=== PATIENT | female | born 1975 | race Caucasian/White ===

== ENCOUNTER 2016-07-10 23:41 | Outpatient (CLI) | payer MEDICAID ==
[~2016-07-10] VITALS: Ht 157.5 cm; Wt 84.4 kg
[~2016-07-10 23:41] MED LIST: CALC600T5 PO; FERR134T PO; PREN1TAB79 PO
[2016-07-10 23:59] VITALS: Ht 157.5 cm; Wt 84.4 kg
[2016-07-11] VITALS: BP 118/78; PULSE 79; RESP 19
--- NOTE | 2016-07-11 01:07 | PN ---
Date/Time of Note Date/Time of Note DATE: 07/11/16 TIME: 01:03 OB Subjective Subjective Subjective 41 yo P3005 @ 30 wks, came w c/o ctx, no VB, no LOF, good FM OB Objective Objective Objective Abdomen- gravid, n/t SVE- l/c/p per rn FHT- Cat I [place]- rare ctx Abdomen: WNL Effacement: 0% Station: -3 Contractions on Admission: >10 Minutes Apart Intensity: Mild OB Assessment/Plan Other Assessment: 41 yo P3005 @ 30 wks, r/o PTL - reassuring status - sono; ffn collected; will discard if cervical length >3cm BOZENA KOVACS MD Jul 11, 2016 01:07
--- NOTE | 2016-07-11 01:46 | RADRPT ---
PROCEDURE: Limited OB ultrasound CLINICAL INDICATION: Pain TECHNIQUE: Limited sonographic evaluation of the gravid uterus was performed to assess cervical le ngth. COMPARISON: None FINDINGS: Cervix is 4.64 cm in length and appears closed. Single live intrauterine with a heart rate 157 beats per minute is present. Fetus is in cephalic presentation. The placenta is anterior. Th ere is no evidence for placenta previa.. IMPRESSION: Cervical length 4.64 cm. RPTAT: HMVK .Charan Bull MD, Date Time Electronically viewed and signed by .Charan Bull MD, on 07/11/2016 01:46 .K/
--- NOTE | 2016-07-11 02:16 | TRIAGE ---
OB Triage Datetime Report Generated by CPN: 07/11/2016 02:16 Datetime: 07/11/2016 02:00 Labor Evaluation Frequency: IRREGULAR Monitor Mode: External Duration (sec)2399: 40-100 Quality: Mild Pattern: Normal: <= 5 Contractions in 10 Minutes Resting Tone [place]: Relaxed Heart Rate FHR Baseline Rate: 145 Monitor Mode: External US FHR Baseline Changes: No Baseline Change Variability: Moderate 6-25 bpm Accelerations: 15X15 Decelerations: None Category: Category I Pain Assessment Pain Scale: 0 Pain Presence: None/Denies Pain Type: N/A Datetime: 07/11/2016 01:30 Pain Assessment Pain Scale: 0 Pain Presence: None/Denies Pain Type: N/A Datetime: 07/11/2016 01:00 Labor Evaluation Frequency: 2/HR Monitor Mode: External Duration (sec)2399: 100 Quality: Mild Pattern: Normal: <= 5 Contractions in 10 Minutes Resting Tone [place]: Relaxed Heart Rate FHR Baseline Rate: 145 Monitor Mode: External US FHR Baseline Changes: No Baseline Change Variability: Moderate 6-25 bpm Accelerations: 15X15 Decelerations: None Category: Category I Datetime: 07/11/2016 00:35 Pain Assessment Pain Scale: 0 Pain Presence: None/Denies Pain Type: N/A Datetime: 07/10/2016 23:50 Time of Arrival: 07/10/2016 23:30 EGA: 31.2 Arrived By: Wheelchair Arrived From: Home Chief Complaint: Contractions Movement: Present Contractions: Irregular Time Contractions Began: 07/10/2016 20:00 Contractions: Every 5-10 minutes Rupture of Membranes: Denies Vaginal Bleeding: None Vaginal Discharge: Denies Recent Sexual Intercouse: Denies Abdominal Trauma: Not Applicable Patient Complaints: Contractions; Cramping Time Provider Notified: 07/10/2016 23:46 Provider Notified: Dr. Olmos Initial Plan: CEFM, FFN, CL Datetime: 07/10/2016 23:47 Stage of : OB Triage Assessment Type: Triage Maternal Assessment Level of Consciousness: Fully Conscious DTR's/Clonus: DTRs 2+; No Clonus Headache: Denies Blurred Vision: No Respiratory Effort: Unlabored; Regular Rhythm; Equal Expansion Breath Sounds, Left: Clear and Equal Breath Sounds, Right: Clear and Equal Nausea/Vomiting: Denies RUQ Epigastric Pain: Denies Lower Extremities Edema: None Degree: None Upper Extremities Edema: None Degree: None Facial Edema: None Temperature Route: Oral Fall Risk Assessment History of Falling: (0) No Secondary Diagnosis: (0) No Ambulatory Aid: (0) Bedrest/Nurse Assist IV Therapy: (0) No Gait: (0) Normal/Bedrest/Immobile Mental Status: (0) Oriented to Own Ability Fall Score: 0 Fall Risk Score Definition: No Risk: No action required Pain Assessment Pain Scale: 4 Pain Presence: Intermittent Pain Type: Cramping Pain Location: Abdomen Datetime: 05/20/2016 01:47 Labor Evaluation Frequency: 0 Monitor Mode: External Datetime: 05/20/2016 01:44 Pain Presence: None/Denies Pain Assessment Comments: PT STATES SHE HAS NO PAIN AND WANTS TO GO HOME Datetime: 05/20/2016 01:00 Labor Evaluation Frequency: 0 Monitor Mode: External Datetime: 05/20/2016 00:30 Labor Evaluation Frequency: 0 Pattern: Normal: <= 5 Contractions in 10 Minutes Datetime: 05/20/2016 00:00 Labor Evaluation Frequency: 0 Monitor Mode: External Datetime: 05/19/2016 23:40 Stage of : OB Triage Datetime: 05/19/2016 23:24 Stage of : OB Triage Datetime: 05/19/2016 22:59 Stage of : OB Triage Labor Evaluation Frequency: 0 Monitor Mode: External Resting Tone [place]: Relaxed Datetime: 05/19/2016 22:44 Stage of : OB Triage Datetime: 05/19/2016 22:04 Stage of : OB Triage Datetime: 05/19/2016 22:01 Stage of : OB Triage Datetime: 05/19/2016 22:00 Stage of : OB Triage Labor Evaluation Frequency: 0 Monitor Mode: External Resting Tone [place]: Relaxed Datetime: 05/19/2016 21:56 Stage of : OB Triage Datetime: 05/19/2016 21:05 Stage of : OB Triage Monitor Mode: External Datetime: 05/19/2016 21:00 Labor Evaluation Frequency: 0 Monitor Mode: External Resting Tone [place]: Relaxed Datetime: 05/19/2016 20:48 Stage of : OB Triage Datetime: 05/19/2016 20:29 Stage of : OB Triage Datetime: 05/19/2016 20:20 Time of Arrival: 05/19/2016 20:09 EGA: 23.6 Arrived By: Wheelchair Arrived From: Home Chief Complaint: Upper abd pain since 1900 Movement: Present Contractions: Denies/Absent Rupture of Membranes: Denies Vaginal Bleeding: None Vaginal Discharge: Denies Recent Sexual Intercouse: Denies Abdominal Trauma: Not Applicable Patient Complaints: Other Time Provider Notified: 05/20/2016 21:56 Provider Notified: CLIFF Initial Plan: VS, EFM, U/S r upper quadrant Datetime: 05/19/2016 20:15 Stage of : OB Triage Monitor Mode: External Datetime: 05/19/2016 20:12 Stage of : OB Triage Heart Rate FHR Baseline Rate: 145 Monitor Mode: Doppler Comments: X 1 min with audible fhts to 165s'
== END 2016-07-11 02:13 | disposition home or self-care (01) ==
LOC: OBT 23:41 → L-D 23:43 → OBT 07-11 02:13
PROVIDERS: ATTEND Obstetrics & Gynecology
DX: O62.9 Abnormality of forces of labor, unspecified (principal); O09.523 Supervision of elderly multigravida, third trimester; Z3A.30 30 weeks gestation of pregnancy
CPT/HCPCS: 76817; Z7500; G0463

== ENCOUNTER 2017-02-03 10:15 | Emergency (ER) | payer MEDICAID ==
[~2017-02-03] VITALS: Wt 69.0 kg
[2017-02-03] MEDS ORDERED: KETOROLAC 30 MG INJ IV STA (10:43)
[2017-02-03] MEDS ORDERED: SOD CHLORIDE 0.9% 1,000 ML IV STA (10:43)
[2017-02-03] MEDS ORDERED: ONDANSETRON 4 MG INJ IV STA (10:43)
[2017-02-03 11:30] LABS: ALBUMIN/GLOBULIN RATIO 1.56; BILIRUBIN,INDIRECT 0.3 mg/dl (0-1.1); BILIRUBIN,TOTAL 0.3 mg/dl (0.2-1.3); CALCIUM 9.4 mg/dl (8.4-10.2); CREATININE 0.56 mg/dl (0.44-1.00); POTASSIUM 4.6 mmol/L (3.5-5.1); TOTAL PROTEIN 8.2 g/dl (6.1-8.1)
[2017-02-03 11:41] LABS: ADD UMIC NO; UR ASCORBIC ACID 40 mg/dL (NEGATIVE); UR BILIRUBIN (Dip) NEGATIVE (NEGATIVE); UR BLOOD (Dip) NEGATIVE (NEGATIVE); UR CLARITY CLEAR (CLEAR); UR COLOR YELLOW (YELLOW); UR GLUCOSE (Dip) NEGATIVE (NEGATIVE); UR KETONES (Dip) NEGATIVE (NEGATIVE); UR LEUKOCYTE ESTERASE (Dip) NEGATIVE Leu/ul (NEGATIVE); UR NITRITE (Dip) NEGATIVE (NEGATIVE); UR TOTAL PROTEIN (Dip) NEGATIVE (NEGATIVE); UR UROBILINOGEN (Dip) NEGATIVE (NEGATIVE)
[2017-02-03 11:41] LABS: BASOPHILS % 0.3 % (0.0-2.0); EOSINOPHILS # 0.1 10^3/ul (0.0-0.5); EOSINOPHILS % 1.5 % (0.0-7.0); HEMATOCRIT 45.2 % (37.0-47.0); HEMOGLOBIN 15.1 g/dl (12.0-16.0); LYMPHOCYTES # 2.2 10^3/ul (0.8-2.9); LYMPHOCYTES % 35.8 % (15.0-51.0); MEAN CORPUSCULAR HEMOGLOBIN 30.8 pg (29.0-33.0); MEAN CORPUSCULAR HGB CONC 33.4 g/dl (32.0-37.0); MEAN CORPUSCULAR VOLUME 92.1 fl (82.0-101.0); MEAN PLATELET VOLUME 11.2 fl (7.4-10.4); MONOCYTE # 0.6 10^3/ul (0.3-0.9); MONOCYTES % 8.9 % (0.0-11.0); NEUTROPHIL # 3.3 10^3/ul (1.6-7.5); NEUTROPHILS % 53.3 % (39.0-77.0); PLATELET COUNT 241 10^3/UL (140-415); RED BLOOD COUNT 4.91 10^6/ul (4.20-5.40); RED CELL DISTRIBUTION WIDTH 12.3 % (11.5-14.5); WHITE BLOOD COUNT 6.2 10^3/ul (4.8-10.8)
--- NOTE | 2017-02-03 12:47 | RADRPT ---
PROCEDURE: Abdominal Ultrasound (right upper quadrant). CLINICAL INDICATION: Abdominal pain TECHNIQUE: Multiple real-time longitudinal and transverse images of the right upper quadrant of th e abdomen were acquired utilizing a curved array transducer. Images were reviewed on a high-resoluti on PACS workstation. COMPARISON: Abdominal ultrasound 05/19/2016 FINDINGS: The liver demonstrates increased echogenicity consistent with fatty infiltration. The liver measure s at the upper limits of normal for size. No focal masses are identified. There is no evidence of intra or extrahepatic ductal dilatation. The common bile duct measures 3.6 mm in diameter. No galls tones or gallbladder wall thickening is seen. The visualized portions of the pancreas are unremarkable with obscuration of the tail of the pancrea s. No free fluid is identified. There is no evidence of right hydronephrosis or renal calcification. Right renal calcification seen on ultrasound 2016 is not appreciated on the current study. The right kidney measures 12.5 cm in l ength. The visualized portions of the aorta and inferior vena cava are within normal limits. IMPRESSION: 1. Fatty infiltration of the liver. 2. Otherwise unremarkable right upper quadrant ultrasound. RPTAT: KK .Juaquin Robbins MD, Date Time Electronically viewed and signed by .Juaquin Robbins MD, MD on 02/03/2017 12:47 .B/
[2017-02-03] MEDS ORDERED: IBUP-1542 PO (12:53)
[2017-02-03 13:35] VITALS: BP 131/73; PULSE 68; RESP 16; TEMP 98.1
--- NOTE | 2017-02-03 15:11 | ERD ---
ER Documentation Chief Complaint Date/Time DATE: 02/03/17 TIME: 14:29 Chief Complaint ABD PAIN X 8 DAYS HPI this is a 41 year old female presenting to the emergency department complaining of generalized abdominal pain,diarrhea, nausea for the past 8 days. She states pain comes and goes, rates it 8/10. Patient states it is worse with food. She denies blood in stools. She denies taking any medications. Last BP at 9:30p. She admits to mild GUADARRAMA ROS All systems reviewed and are negative except as per history of present illness. Medications Home Meds Active Scripts Ibuprofen* (Motrin*) 600 Mg Tab, 600 MG PO Q6H Y for PAIN AND OR ELEVATED TEMP, #30 TAB Prov:RUPALI CEBALLOS PA-C 02/03/17 Reported Medications Calcium Carbonate (CALCIUM) 600 Mg Tablet, 600 MG PO DAILY, TAB 05/19/16 Ferrous Sulfate (Iron) 134 Mg Tablet, 134 MG PO DAILY, TAB 05/19/16 Vit W-Ca,Fe,FA(<1 mg) ( Vitamins) 1 Each Tablet, 1 EACH PO DAILY, TAB 05/19/16 Allergies Allergies: Coded Allergies: Penicillins (Verified Allergy, Severe, 07/10/16) throat swells PMhx/Soc Medical and Surgical Hx: pt denies Medical Hx, pt denies Surgical Hx Hx Alcohol Use: No Hx Substance Use: No Hx Tobacco Use: No Physical Exam Vitals Vital Signs Date Time Temp Pulse Resp B/P Pulse Ox O2 Delivery O2 Flow Rate FiO2 02/03/17 13:35 98.1 68 16 131/73 99 Room Air 02/03/17 10:28 98.0 82 18 165/86 99 Physical Exam GENERAL: well-developed/well-nourished, in no apparent distress, non-toxic appearing HENT: NC/AT, moist mucous membranes EYES: Conjunctiva normal NECK: Supple, no lymphadenopathy PULM: CTA bilaterally, no rales, rhonchi, or wheezing heard CV: Normal S1S2, RRR, good capillary refill GI: Soft, non-distended, tender to palpation all quadrants, mostly right upper quad Normal bowel sounds, no masses or organomegaly felt on exam No gross peritonitis, no bruits Negative Rovsing, negative [place], negative McBurney's point, Negative CVAT BACK: No masses EXT: No clubbing, cyanosis, or edema NEURO: Alert and Orientated SKIN: Intact, normal turgor PSYCH: Normal mood and mentation Result Diagram: 02/03/17 1100 02/03/17 1100 Results 24 hrs Laboratory Tests Test 02/03/17 10:50 02/03/17 11:00 Urine Color YELLOW Urine Clarity CLEAR Urine pH 5.0 Urine Specific [place] 1.010 Urine Ketones NEGATIVEmg/dL Urine Nitrite NEGATIVEmg/dL Urine Bilirubin NEGATIVEmg/dL Urine Urobilinogen NEGATIVEmg/dL Urine Leukocyte Esterase NEGATIVELeu/ul Urine Hemoglobin NEGATIVEmg/dL Urine Glucose NEGATIVEmg/dL Urine Total Protein NEGATIVEmg/dl White Blood Count 6.210^3/ul Red Blood Count 4.9110^6/ul Hemoglobin 15.1g/dl Hematocrit 45.2% Mean Corpuscular Volume 92.1fl Mean Corpuscular Hemoglobin 30.8pg Mean Corpuscular Hemoglobin Concent 33.4g/dl Red Cell Distribution Width 12.3% Platelet Count 19968^3/UL Mean Platelet Volume 11.2fl Neutrophils % 53.3% Lymphocytes % 35.8% Monocytes % 8.9% Eosinophils % 1.5% Basophils % 0.3% Nucleated Red Blood Cells % 0.0/100WBC Neutrophils # 3.310^3/ul Lymphocytes # 2.210^3/ul Monocytes # 0.610^3/ul Eosinophils # 0.110^3/ul Basophils # 0.010^3/ul Nucleated Red Blood Cells # 0.010^3/ul Sodium Level 146mmol/L Potassium Level 4.6mmol/L Chloride Level 103mmol/L Carbon Dioxide Level 26mmol/L Anion Gap 22 Blood Urea Nitrogen 8mg/dl Creatinine 0.56mg/dl Glucose Level 100mg/dl Calcium Level 9.4mg/dl Total Bilirubin 0.3mg/dl Direct Bilirubin 0.00mg/dl Indirect Bilirubin 0.3mg/dl Aspartate Amino Transf (AST/SGOT) 57IU/L Alanine Aminotransferase (ALT/SGPT) 173IU/L Alkaline Phosphatase 109IU/L Total Protein 8.2g/dl Albumin 5.0g/dl Globulin 3.20g/dl Albumin/Globulin Ratio 1.56 Lipase 30U/L Current Medications Medications (Trade) Dose Ordered Sig/Gutierrez Route PRN Reason Start Time Stop Time Status Last Admin Dose Admin Sodium Chloride (NS) 1,000 ml @ 1,000 mls/hr Q1H STAT IV 02/03/17 10:43 02/03/17 11:42 DC 02/03/17 11:04 Ondansetron HCl (Zofran Inj) 4 mg ONCE STAT IV 02/03/17 10:43 02/03/17 10:45 DC 02/03/17 11:04 Ketorolac Tromethamine (Toradol) 30 mg ONCE STAT IV 02/03/17 10:43 02/03/17 10:45 DC 02/03/17 11:04 Procedures/MDM 41-year-old female with history of appendicitis patient with vomiting and diarrhea, due to viral gastroenteritis vs food poisoning. Low suspicion for pseudomembranous colitis, diverticulitis, appendicitis, cholecystitis, pancreatitis, or other abdominal emergencies or acute cardiopulmonary conditions due to physical examination and diagnostic testing. Labs were drawn, CBC did not show any evidence of leukocytosis or anemia. CMP did not show renal, or electrolyte abnormalities. Patient did have mild elevated likely due to [place]. Lipase was unremarkable. UA was unremarkable for urinary tract infection. urine preg was negative. Patient was given 1 l of normal saline fluids, Zofran, and Toradol with improvement of nausea. Gallbladder ultrasound was done showed evidence of fatty infiltration. Patient is hemodynamically stable for discharge. Prescription Zofran and ibuprofen was given. Discussed to increase fluids. Discussed to return to the ED if not improving as expected or for any worsening conditions. Patient understood and agreed with this plan. Departure Diagnosis: Primary Impression: Abdominal pain Additional Impressions: Elevated transaminase level OLVERA (nonalcoholic steatohepatitis) Condition: Stable Patient Instructions: Abdominal Pain, Non-Alcoholic Fatty Liver Disease (NAFLD) , Understanding Kidney Stones, Diet, Vomiting Or Diarrhea [6Yr-Adult] Referrals: [facility] Additional Instructions: Visite a [facility] para un EXAMEN.Regrese a estas instalaciones si no se mejora enmanuel esperbamos o enmanuel le dijimos. [place] toda la medicina lupillo y enmanuel se le indic. Regrese a estas instalaciones si no se mejora enmanuel esperbamos o enmanuel le dijimos. RUPALI CEBALLOS PA-C Feb 03, 2017 14:39
== END 2017-02-03 13:37 | disposition home or self-care (01) ==
LOC: FTE 10:15
DX: R10.84 Generalized abdominal pain (principal); R74.8 Abnormal levels of other serum enzymes; K75.81 Nonalcoholic steatohepatitis (NASH)
CPT/HCPCS: 36415; 76705; 80053; 81003; 83690; 85025; 96374; 96375; J1885; J2405; J7030; Z7502

== ENCOUNTER 2018-02-16 15:02 | Emergency (ER) | END 2018-02-16 19:30 | disposition home or self-care (01) ==